=== PATIENT | male | born 1950 | race African-American/Black ===

== ENCOUNTER 2017-12-29 21:43 | Inpatient (IN) | payer OTHER ==
[~2017-12-29] VITALS: Ht 180.3 cm; Wt 89.5 kg
[~2017-12-29 21:43] MED LIST: ASPIR 8181 M1 PO; FLOMAX0.4 MG PO; HYZAAR 100-21 TABLET PO; MEN'S MULTI-VI1 EACH PO; MOBIC15 MG PO; OMEGA-31000 M1 PO; PAXIL20 MG PO; PRILOSEC40 MG PO; ROBAXIN500 MG PO; ZYRTEC10 M2 PO
[2017-12-30 08:35] VITALS: BP 117/61
[2017-12-30 18:08] VITALS: BP 152/77
[2017-12-30 19:34] VITALS: BP 164/80
[2017-12-30 23:12] VITALS: BP 168/81
[2017-12-31 03:46] VITALS: BP 160/83
[2017-12-31 07:44] VITALS: BP 165/79
[2017-12-31 12:19] LABS: APPEARANCE CLEAR ((CLEAR)); BILIRUBIN NEGATIVE; BLOOD MODERATE; COLOR YELLOW ((YELLOW)); GLUCOSE (STRIP) NEGATIVE; KETONES NEGATIVE; LEUKOCYTES NEGATIVE; NITRITE NEGATIVE; PROTEIN (STRIP) NEGATIVE; UROBILINOGEN 0.2 MG/DL (0.2-1.0)
[2017-12-31 12:34] LABS: BACTERIA NONE SEEN /HPF; EPITHELIAL CELLS NONE SEEN /HPF; MUCUS TRACE /LPF; UCUL ADDED? NO; WHITE BLOOD CELLS 0-5 /HPF (0-5)
[2017-12-31 12:53] LABS: CHLORIDE 100 MEQ/L (99-109); GFR ESTIMATE (CALCULATED) > 59 mL/min/ (58.99-99999); GLUCOSE 103 mg/dL (70-99); POTASSIUM 3.8 MEQ/L (3.7-5.4); SODIUM 135 MEQ/L (136-147); UREA NITROGEN (BUN) 12 mg/dL (9-23)
[2017-12-31 15:21] VITALS: BP 162/78
[2017-12-31 18:09] VITALS: BP 175/80
[2017-12-31 23:55] VITALS: BP 132/70
[2018-01-01 07:39] VITALS: BP 149/77
[2018-01-01] MEDS ORDERED: OXYCODONE-APAP1 EACH PO (09:05)
== END 2018-01-01 13:55 | disposition home or self-care (01) | DRG 472 ==
LOC: ENRESERV 21:43 → 2SOUTH 12-30 07:58 → 3EAST 12-30 07:58 → 2SOUTH 12-30 11:53 → ENRESERV 12-30 14:24 → 2SOUTH 12-30 15:34 → 3EAST 12-30 17:53
PROVIDERS: Hospitalist
DX: M48.02 Spinal stenosis, cervical region (principal); M47.12 Other spondylosis with myelopathy, cervical region; N13.8 Other obstructive and reflux uropathy; G95.20 Unspecified cord compression; I10 Essential (primary) hypertension; K21.9 Gastro-esophageal reflux disease without esophagitis; M43.6 Torticollis; N40.1 Benign prostatic hyperplasia with lower urinary tract symptoms; N52.9 Male erectile dysfunction, unspecified; R33.8 Other retention of urine; Z98.1 Arthrodesis status; Z79.82 Long term (current) use of aspirin; Z87.891 Personal history of nicotine dependence; Z80.42 Family history of malignant neoplasm of prostate
CPT/HCPCS: 72020; 72040; 76000; 80048; 81003; 86850; 86900; 86901; J0690; J1170; J2175; J2250; J2405; J3010; J3370; J3480

== ENCOUNTER 2018-01-02 22:48 | Emergency (ER) | payer OTHER ==
[~2018-01-02] VITALS: Ht 180.3 cm; Wt 86.9 kg
[~2018-01-02 22:48] MED LIST changes: +OXYCODONE-APAP1 EACH PO
[2018-01-02 23:37] LABS: HEMATOCRIT 38.5 % (38.0-50.0); MCH 28.5 PG (29.0-34.0); MCHC 34.8 G/DL (30.0-36.0); MCV 81.9 FL (86-99); PLATELET COUNT 277 K/uL (156-360); RBC DIS.WIDTH-CV 12.8 % (11.8-14.6); RBC DIS.WIDTH-SD 38.5 % (39-53); WHITE BLOOD COUNT 14.1 K/uL (4.1-10.2)
[2018-01-02 23:39] LABS: HEMOGLOBIN 13.4 G/DL (12.5-16.6)
[2018-01-02 23:45] LABS: ALBUMIN 3.5 g/dL (3.2-4.8); CHLORIDE 99 mEq/L (99-109); POTASSIUM 3.8 mEq/L (3.7-5.4); SODIUM 135 mEq/L (136-147)
[2018-01-02 23:47] LABS: GLUCOSE 124 mg/dL (70-99); TOTAL PROTEIN 6.9 g/dL (6.4-8.3)
[2018-01-02 23:49] LABS: TOTAL BILIRUBIN 0.7 mg/dL (0.0-1.0)
[2018-01-02 23:51] LABS: ALKALINE PHOSPHATASE 56 IU/L (3-129); CREATININE 1.1 mg/dL (0.6-1.3); GFR ESTIMATE (CALCULATED) > 59 mL/min/ (58.99-99999)
[2018-01-02 23:52] LABS: UREA NITROGEN (BUN) 12 mg/dL (9-23)
[2018-01-02 23:53] LABS: AST (GOT) 29 IU/L (2-34)
[2018-01-02 23:54] LABS: ALT (GPT) 20 IU/L (3-49)
[2018-01-03 00:09] LABS: APPEARANCE CLEAR ((CLEAR)); BILIRUBIN NEGATIVE; BLOOD MODERATE; COLOR YELLOW ((YELLOW)); GLUCOSE (STRIP) NEGATIVE; KETONES NEGATIVE; LEUKOCYTES NEGATIVE; NITRITE NEGATIVE; PROTEIN (STRIP) NEGATIVE; SPECIFIC GRAVITY 1.014 (1.000-1.030); UROBILINOGEN 0.2 MG/DL (0.2-1.0)
[2018-01-03 00:19] LABS: BACTERIA NONE SEEN /HPF; EPITHELIAL CELLS RARE /HPF; HYALINE CASTS 0-5 /LPF; MUCUS TRACE /LPF; RED BLOOD CELLS TNTC /HPF (0-5); UCUL ADDED? YES; WHITE BLOOD CELLS 0-5 /HPF (0-5)
[2018-01-03] MEDS ORDERED: BACTRIM,SEPT1 TABLET PO (02:57)
[2018-01-03] MEDS ORDERED: COLACE100 MG PO (02:58)
[2018-01-03 04:32] VITALS: BP 142/75
== END 2018-01-03 04:17 | disposition home or self-care (01) ==
LOC: EME → EDBD 22:48 → EME 01-03 04:17
PROVIDERS: Emergency Medicine
DX: R50.82 Postprocedural fever (principal); G89.18 Other acute postprocedural pain; M54.2 Cervicalgia; Z98.1 Arthrodesis status; Z98.890 Other specified postprocedural states; J98.11 Atelectasis; I10 Essential (primary) hypertension; Z79.82 Long term (current) use of aspirin; Z87.891 Personal history of nicotine dependence
CPT/HCPCS: 71046; 80053; 81003; 83605; 85027; 87040; 87086; 99281; 99285; J0690; J2270